=== PATIENT | male | born 1980 | race Caucasian/White ===

== ENCOUNTER 2019-11-24 15:10 | Emergency (ER) | payer SELFPAY ==
[~2019-11-24] VITALS: Ht 180.3 cm; Wt 95.5 kg
[2019-11-24 15:15] VITALS: TEMP 98.6
[2019-11-24] MEDS ORDERED: VOLTAREN 75 DR75 MG PO ×2 (15:53→16:05)
[2019-11-24 16:05] VITALS: BP 122/86; PULSE 68
== END 2019-11-24 16:07 | disposition home or self-care (01) ==
LOC: COL.ER 15:10
DX: S83.206A Unspecified tear of unspecified meniscus, current injury, right knee, initial encounter (principal); F17.210 Nicotine dependence, cigarettes, uncomplicated; Z88.0 Allergy status to penicillin; X50.9XXA Other and unspecified overexertion or strenuous movements or postures, initial encounter

== ENCOUNTER 2019-12-13 12:42 | Emergency (ER) | payer SELFPAY ==
[~2019-12-13] VITALS: Ht 180.3 cm; Wt 95.5 kg
[~2019-12-13 12:42] MED LIST: VOLTAREN 75 DR75 MG PO
[2019-12-13 12:47] VITALS: TEMP 97.8
[2019-12-13 15:37] VITALS: BP 110/66
[2019-12-13] MEDS ORDERED: COMPAZINE 110 MG/TAB PO (16:22)
[2019-12-13 16:25] VITALS: PULSE 72
== END 2019-12-13 16:25 | disposition home or self-care (01) ==
LOC: COL.ER 12:42
DX: G40.909 Epilepsy, unspecified, not intractable, without status epilepticus (principal)
CPT/HCPCS: J1100; J1200; J1885; J2550; J7030

== ENCOUNTER 2020-08-20 19:24 | Emergency (ER) | payer SELFPAY ==
[~2020-08-20] VITALS: Ht 180.3 cm; Wt 104.5 kg
[~2020-08-20 19:24] MED LIST changes: +COMPAZINE 110 MG/TAB PO
[2020-08-20 19:30] VITALS: TEMP 98
[2020-08-20 19:48] VITALS: BP 136/74; PULSE 76
== END 2020-08-20 19:48 | disposition home or self-care (01) ==
LOC: COL.ER 19:24
DX: L23.9 Allergic contact dermatitis, unspecified cause (principal); S83.249A Other tear of medial meniscus, current injury, unspecified knee, initial encounter; H72.92 Unspecified perforation of tympanic membrane, left ear; H60.92 Unspecified otitis externa, left ear; G56.20 Lesion of ulnar nerve, unspecified upper limb; R51.9 Headache, unspecified; F17.210 Nicotine dependence, cigarettes, uncomplicated; Z88.0 Allergy status to penicillin; X58.XXXA Exposure to other specified factors, initial encounter
CPT/HCPCS: J2930

== ENCOUNTER 2021-03-13 18:15 | Emergency (ER) | payer SELFPAY ==
[~2021-03-13] VITALS: Ht 180.3 cm; Wt 104.5 kg
[2021-03-13 18:21] VITALS: BP 134/92; TEMP 98.4
[2021-03-13] MEDS ORDERED: FLEXERIL 1010 MG/TAB PO (19:05)
[2021-03-13 19:28] VITALS: PULSE 81
== END 2021-03-13 19:30 | disposition home or self-care (01) ==
LOC: COL.ER 18:15
DX: S39.012A Strain of muscle, fascia and tendon of lower back, initial encounter (principal); W20.8XXA Other cause of strike by thrown, projected or falling object, initial encounter

== ENCOUNTER 2021-03-29 14:26 | Emergency (ER) | payer SELFPAY ==
[~2021-03-29] VITALS: Ht 180.3 cm; Wt 106.8 kg
[~2021-03-29 14:26] MED LIST changes: +FLEXERIL 1010 MG/TAB PO
[2021-03-29 14:53] VITALS: TEMP 97.1
[2021-03-29] MEDS ORDERED: CLEOCIN HCL300 MG PO (15:26)
[2021-03-29 15:40] VITALS: BP 107/73; PULSE 86
== END 2021-03-29 15:42 | disposition home or self-care (01) ==
LOC: COL.ER 14:26
DX: L02.211 Cutaneous abscess of abdominal wall (principal); M54.9 Dorsalgia, unspecified; F17.200 Nicotine dependence, unspecified, uncomplicated; Z88.0 Allergy status to penicillin
CPT/HCPCS: J1885

== ENCOUNTER 2021-11-22 22:42 | Emergency (ER) | payer SELFPAY ==
[~2021-11-22] VITALS: Ht 180.3 cm; Wt 106.8 kg
[~2021-11-22 22:42] MED LIST changes: +CLEOCIN HCL300 MG PO
[2021-11-22 22:49] VITALS: TEMP 99.2
[2021-11-22 23:37] LABS: BASO % 0.2 % (0.0-2.0); EOS # 0.1 K/mm3 (0.0-0.7); EOS % 0.7 % (0.0-4.0); GRAN # 13.1 K/mm3 (1.4-6.5); GRAN % 78.3 % (42.2-75.2); HEMATOCRIT 38.9 % (42.0-52.0); HEMOGLOBIN 13.2 g/dl (13.5-18.0); LYMPH # 1.9 K/mm3 (1.2-3.4); LYMPH % 11.2 % (20.0-51.0); MEAN CELL VOLUME 89 fl (80.0-100.0); MEAN CORPUSCULAR HEMOGLOBIN 30 pg (27-31); MEAN CORPUSCULAR HGB CONC 34 g/dl (33.0-37.0); MEAN PLATELET VOLUME 10.6 fl (7.4-10.4); MONO # 1.5 K/mm3 (0.1-0.6); MONO % 9.1 % (1.7-9.3); PLATELET COUNT 246 K/mm3 (130-400); RED BLOOD COUNT 4.38 M/mm3 (4.20-5.60); REDCELL DISTRIBUTION WIDTH-CV 13.6 % (11.5-14.5)
[2021-11-22 23:56] LABS: ALBUMIN 3.4 gm/dL (3.5-5.0); BILIRUBIN,TOTAL 0.8 mg/dL (0.2-1.2); CALCIUM 8.6 mg/dL (8.4-10.2); CREATININE, serum 0.88 mg/dL (0.72-1.25); POTASSIUM 3.3 mmol/L (3.5-4.5); TOTAL PROTEIN 6.7 gm/dL (6.2-8.1)
[2021-11-23 02:43] VITALS: BP 123/71; PULSE 82
== END 2021-11-23 02:43 | disposition home or self-care (01) ==
LOC: COL.ER 22:42
PROVIDERS: Physician Assistant
DX: L03.113 Cellulitis of right upper limb (principal); F19.10 Other psychoactive substance abuse, uncomplicated; D72.829 Elevated white blood cell count, unspecified; F17.200 Nicotine dependence, unspecified, uncomplicated; Z88.0 Allergy status to penicillin; Z28.310 Unvaccinated for COVID-19
CPT/HCPCS: J3370; J7040

== ENCOUNTER 2023-10-02 23:25 | Emergency (ER) | payer OTHER ==
[~2023-10-02] VITALS: Ht 175.3 cm; Wt 109.1 kg
[~2023-10-02 23:25] MED LIST changes: +BACTRIM DS 8001 TAB PO
[2023-10-02 23:41] VITALS: BP 131/91; TEMP 98.4
[2023-10-02] MEDS ORDERED: Clindamycin 150 MG CAP PO ONE (23:45)
[2023-10-02] MEDS ORDERED: oxyCODONE/Acetaminophen 5-325 MG TAB PO ONE (23:45)
[2023-10-03] MEDS ORDERED: PERCOCET 325 MG1 TA2 PO
[2023-10-03] MEDS ORDERED: CLEOCIN HCL300 MG PO
[2023-10-03 00:21] VITALS: PULSE 88
== END 2023-10-03 00:22 | disposition home or self-care (01) ==
LOC: COL.ER 23:25
DX: K04.7 Periapical abscess without sinus (principal); K02.9 Dental caries, unspecified; F17.210 Nicotine dependence, cigarettes, uncomplicated; Z88.0 Allergy status to penicillin

== ENCOUNTER 2024-02-26 02:04 | Emergency (ER) | payer OTHER ==
[~2024-02-26] VITALS: Ht 180.3 cm; Wt 109.1 kg
[~2024-02-26 02:04] MED LIST changes: +PERCOCET 325 MG1 TA2 PO
[2024-02-26] MEDS ORDERED: Clindamycin 150 MG CAP PO ONE (02:45)
[2024-02-26] MEDS ORDERED: Ketorolac 15 MG/ML VIAL IM ONE (02:45)
[2024-02-26] MEDS ORDERED: CLEOCIN HCL300 MG PO (02:51)
[2024-02-26] MEDS ORDERED: PERIDEX (CHLOR480 ML MM (02:51)
[2024-02-26] MEDS ORDERED: NYSTATIN OR100 MU/ML PO (02:51)
[2024-02-26 02:59] VITALS: BP 144/96; PULSE 81; TEMP 98.3
== END 2024-02-26 02:59 | disposition home or self-care (01) ==
LOC: COL.ER 02:04
DX: K04.7 Periapical abscess without sinus (principal); K05.10 Chronic gingivitis, plaque induced; Z88.0 Allergy status to penicillin
CPT/HCPCS: J1885